=== PATIENT | female | born 1990 | race Caucasian/White ===

== ENCOUNTER 2020-09-07 03:46 | Outpatient (CLI) | payer BC, SELFPAY ==
[2020-09-07 17:45] LABS: SARS-CoV-2 RNA PCR Negative
== END 2020-09-07 03:47 | disposition home or self-care (01) ==
LOC: ANHCOVIDDT 03:46
PROVIDERS: PCP Physician Assistant; Visit Provider Internal Medicine Critical Care Medicine
DX: Z01.812 Encounter for preprocedural laboratory examination (principal); Z20.828 Contact with and (suspected) exposure to other viral communicable diseases
CPT/HCPCS: 87635; C9803; U0003

== ENCOUNTER 2020-09-10 08:02 | Outpatient (CLI) | payer BC, SELFPAY ==
--- NOTE | 2020-10-09 12:03 | WPDSLEEPSTUD ---
Sleep Study Date of Study: 09/10/20 Ordering Provider: Braulio Mcfadden DO Interpreting Physician: Halle Avina MD Sleep Study Type: Polysomnogram Height: 1.65 m Weight: 63.049 kg Body Mass Index: 23.1 [place]: 14 Reason for Sleep Study Hypersomnia Sleep History Guerda Fair is a 30 yo female who has had decreased energy for 10 or 11 years. She has a history of low B12 and iron levels. She has been getting injections. She requires napping in the daytime or she can't keep herself awake for more than 14 hours. There is a family history with her father having sleep apnea recently put on BiPAP. She has had chiropractic adjustments to help with joint and nerve pain. She rarely snores, rarely awakens at night with belching heartburn or coughing, rarely awakens from sleep feeling short of breath. She occasionally has trouble sleeping with a cold. She rarely wakes up gasping for breath at night, almost never has breathing problems at night reported to her by others. She rarely sweats excessively at night. She frequently notices her heart pounding or beating irregularly at night. She frequently falls asleep during the day, rarely involuntarily, never while driving. She does not fall asleep during physical effort. She rarely has loss of muscle tone with strong emotion. She occasionally has daytime difficulty is due to excessive sleepiness. Her job is a junior high school teacher. She does not feel paralyzed on waking or falling asleep. She occasionally has vivid dreamlike scenes upon awakening or falling asleep. She is not afraid to go to sleep. She occasionally has nightmares. She clinically remembers her dreams. She frequently has racing thoughts. She occasionally feels sad or depressed. She frequently has anxiety and muscular tension. She occasionally notices parts of her body jerking, occasionally kicks at night, occasionally has crawling and aching feelings in her legs and leg pain during the night. She occasionally has morning jaw pain. She rarely grinds her teeth at night. She occasionally is bothered by pain during the day, rarely is awakened by pain at night, rarely wakes up feeling stiff in the morning, with sore achy muscles or pain in the neck and spine. She has dizziness, stomach problems, fatigue, insomnia, poor appetite and frequent headaches. Normal bedtime is 9:15 p.m. taking 10-15 minutes fall asleep typically waking 3 or 4 times at night for 5-10 minutes. While awake, she will check the time, use the bathroom if needed, rollover and try to return to sleep. She wakes up in the morning at 5:20 a.m.. On the weekends she goes to bed later 10:00 p.m. and wakes at 6:30 a.m.. She estimates 7 8 hours of sleep at night. She changes her social plans at times in order to have a nap. she does take naps. A short nap is not refreshing. Most the time she feels good in the morning until 2:00 p.m. and then she becomes extremely drowsy. Habits: Never smoked tobacco. Caffeine 1 or 2 drinks per day. No alcohol or recreational drugs. [facility] Past Medical History Medical History (Updated 10/09/20 @ 12:49 by Halle Avina MD) Depression with anxiety Hypersomnolence TMJ disease Surgery 2003 Family History Family History Mother Family history of thyroid disease Hypertension Sibling Family history of migraine headaches Father Hypertension Family history of hemochromatosis Obstructive sleep apnea treated with BiPAP Social History Social History Smoking status: Never smoker Second hand tobacco smoke exposure: No Alcohol intake: current Drinks per week: 1 Substance use: never Medications Home Medications Medication Instructions Recorded Confirmed Type fluticasone propionate 50 2 spray NASAL DAILY 10/01/19 08/13/20 History mcg/actuation nasal spray,suspension levonorges
[2020-10-09 13:18] VITALS: BMI 23.1
== END 2020-09-10 08:03 | disposition home or self-care (01) ==
LOC: ANHCSM 08:04
PROVIDERS: PCP Physician Assistant; Visit Provider Internal Medicine
DX: G47.10 Hypersomnia, unspecified (principal); R53.83 Other fatigue
CPT/HCPCS: 95810

== ENCOUNTER 2022-03-06 10:46 | Outpatient (CLI) | payer BC, SELFPAY ==
[2022-03-06 13:33] LABS: Free T4 Free Thyroxine 0.91 ng/mL (0.78-2.19)
[2022-03-06 13:47] LABS: Total Triiodothyronine (T3) 1.17 NG/ML (0.97-1.69)
[2022-03-09 05:56] LABS: Thyroid Peroxidase Antibodies 2701 IU/mL (<9)
[2022-03-09 08:22] LABS: Triiodothyronine T3 Free 3.5 pg/mL (2.3-4.2)
== END 2022-03-06 10:47 | disposition home or self-care (01) ==
LOC: ANHWCLAB 10:48
PROVIDERS: PCP Internal Medicine; Visit Provider Internal Medicine Endocrinology, Diabetes & Metabolism
DX: E04.9 Nontoxic goiter, unspecified (principal); E03.8 Other specified hypothyroidism
CPT/HCPCS: 36415; 84439; 84443; 84480; 84481; 86376

== ENCOUNTER 2022-04-22 08:53 | Outpatient (CLI) | payer BC, SELFPAY ==
[2022-04-22 13:14] LABS: Free T4 Free Thyroxine 1.13 ng/mL (0.78-2.19)
[2022-04-25 06:21] LABS: Triiodothyronine T3 Free 3.4 pg/mL (2.3-4.2)
== END 2022-04-22 08:54 | disposition home or self-care (01) ==
PROVIDERS: PCP Internal Medicine; Visit Provider Internal Medicine Endocrinology, Diabetes & Metabolism
DX: E04.9 Nontoxic goiter, unspecified (principal); E03.8 Other specified hypothyroidism
CPT/HCPCS: 36415; 84439; 84443; 84481

== ENCOUNTER 2022-05-09 10:39 | Outpatient (CLI) | payer BC, SELFPAY ==
[2022-05-09 11:30] LABS: Hematocrit 41.4 % (37.0-47.0); Mean Corpuscular HGB Conc 33.8 g/dl (32-36); Mean Corpuscular Volume 88.7 fl (80-100); Mean Platelet Volume 10.6 fl (7.4-10.4); Platelet Count Result 174 k/mm3 (150-375); Red Blood Count 4.67 M/mm3 (4.2-5.4); Red Cell Distribution Width 11.9 % (11.5-14.5); White Blood Count 5.4 K/mm3 (4.5-10.0)
[2022-05-09 13:16] LABS: Iron 105 ug/dL (37-170)
[2022-05-09 13:19] LABS: Alanine Aminotransferase 20 U/L (6-35); Albumin Level 4.8 g/dL (3.5-5.1); Alkaline Phosphatase 75 U/L (38-126); Anion Gap 9 mmol/L (8-16); Aspartate Amino Transferase 23 U/L (14-36); Bilirubin,Total 0.4 mg/dL (0.2-1.3); Blood Urea Nitrogen 11 mg/dL (7-17); Calcium 8.9 mg/dL (8.4-10.2); Carbon Dioxide 24 mmol/L (22-30); Chloride 108 mmol/L (98-107); Estimated Glomerular Filt Rate > 60; Glucose 95 mg/dL (65-110); Sodium 141 mmol/L (137-145)
[2022-05-09 13:26] LABS: Percent Iron Saturation 36 % (20-50)
== END 2022-05-09 10:40 | disposition home or self-care (01) ==
PROVIDERS: PCP Internal Medicine; Visit Provider Internal Medicine Hematology & Oncology
DX: E83.110 Hereditary hemochromatosis (principal)
CPT/HCPCS: 36415; 80053; 82728; 83540; 83550; 85027

== ENCOUNTER 2022-06-05 08:52 | Outpatient (CLI) | payer BC, SELFPAY ==
[2022-06-05 13:57] LABS: Free T4 Free Thyroxine 1.18 ng/mL (0.78-2.19)
== END 2022-06-05 08:53 | disposition home or self-care (01) ==
LOC: ANHWCLAB 08:56
PROVIDERS: PCP Internal Medicine; Visit Provider Internal Medicine Endocrinology, Diabetes & Metabolism
DX: E03.8 Other specified hypothyroidism (principal); R53.83 Other fatigue; R76.8 Other specified abnormal immunological findings in serum
CPT/HCPCS: 36415; 84439; 84443

== ENCOUNTER 2023-04-27 00:07 | Day surgery (SDC) | payer BC, SELFPAY ==
[2023-04-23 08:13] VITALS: BMI 25.7
--- NOTE | 2023-04-23 08:34 | SUR.PREOP ---
Report to the Outpatient Waiting Room, entrance under the green pavilion located off [facility], at time 0600 on date 04/27/23. Planned Procedure Time: 0730. Time changes happen often and if your time is changed the preop area will call you the afternoon before. - You and your visitor will be asked to self-screen and do not enter if you have any COVID symptoms. - A mask is optional within the hospital at this time. Patients may have clear liquids (water, carbonated beverages, clear teas, apple juice) until 3 hours prior to surgery with a maximum of 20 ounces. - No food from midnight until time of surgery - Infants may have breast milk until 4 hours before surgery, formula 6 hours prior to surgery. - Children will be allowed to drink immediately following surgery. If applicable, please bring a bottle or sippy cup to assist with drinking. Juice, water, soda, and popsicles are readily available. For infants on formula, please bring formula the day of surgery. Pacifiers are allowed. Take the following medications with a SIP of water the morning of surgery: LEVOTHYROXINE DO NOT STOP ANY OF YOUR OTHER PRESCRIPTION MEDICATIONS PRIOR TO SURGERY ?EXCEPT THE FOLLOWING Medications to discontinue per physician N/A Date to take last dose STOP ALL VITAMINS AND SUPPLIMENTS 3 DAYS PRIOR Please no make-up, nail georgian, hairspray, perfume, deodorant, or body powder the day of surgery. No jewelry (including any body piercings) or valuables the day of surgery, leave them at home. Please take a shower or bath the night before, or the morning of, surgery with an antibacterial soap. Wear comfortable, loose fitting clothing. Children are encouraged to wear pajamas. - Jewelry must be removed prior to entering the operating room. Rings and piercings that are not removed may be cut off. - The hospital will not accept responsibility for valuables. - Please leave all valuables, including medications, at home the day of surgery. If you are going home after surgery, a licensed vending route driver must drive you home. - NO public transportation without another adult if you receive anesthesia. - We recommend that an adult stay with you for 24 hours following discharge. - We also recommend that you do not drive, make important decision, drink alcoholic beverages, or take any drugs that were not prescribed by your health care provider for at least 24 hours after your discharge time. For Pediatric surgeries, we recommend two adults accompany the child home. Follow any additional instructions given to you from your surgeon. If you or anyone in your household have experienced Covid symptoms in the past week, please notify your surgeon or the nurse liaison at the phone number below for possible testing. Telephone instructions given to LUCIA LEE and asked if any additional questions and then verbalized understanding. Patient advised to call surgeon office or pre surgery nurse liaison [phone] if any additional questions.
--- NOTE | 2023-04-26 18:57 | PM.IMHP ---
H&P: HPI History of Present Illness Date/Time: 04/26/23 18:57 Chief Complaint: sterilization and LEEP Narrative: Guerda is a 32yo P1011, LMP 12/31/22 who presents for scheduled surgery. She had a colpo 03/2021 due to LGSIL/HPV + pap, which showed ANTON 1. The prior year she also had LGSIL/HPV + pap, followed by colpo showing ANTON 1.?Her pap 03/05/23 also shows ASCUS/HPV + and is tired of colpos. Due to persistent ANTON 1; wants to proceed with LEEP. She is on Slynd and having some BTB/spotting for the last couple months. But she was finally diagnosed with hypothyroidism and hereditary hemochromotosis. She's following with endo. She is sexually active. No breast issues. She is wanting to stop OCPs and no longer desires future children; wants to proceed with tubal-- also has thyroid issues and thinks stopping may help stable her levels. Review of Systems Constitutional: Constitutional: Denies chills, Denies fever(s) and Denies headache(s) Eyes: Eyes: Denies change in vision ENT: Denies dizziness and Denies headache(s) Cardiovascular: Cardiovascular: Denies chest pain and Denies dyspnea Respiratory: Respiratory: Denies cough and Denies dyspnea Gastrointestinal: Gastrointestinal: Denies abdominal pain and Denies change in stool character Genitourinary: Genitourinary: Denies abnormal menses, Denies pelvic pain, Denies vaginal discharge, Denies vaginal odor and Denies vaginal pruritus Neurologic: Denies dizziness and Denies headache(s) Psychiatric: Psychiatric: Denies anxiety and Denies depression [facility] Past Medical History Medical History Abnormal uterine bleeding (AUB) Allergies Anemia Anti-TPO antibodies present B12 deficiency Depression with anxiety Headache, migraine Hemochromatosis carrier Hypersomnolence Hypothyroidism (acquired) Iron overload Lymphadenitis Migraine without status migrainosus Overweight (BMI 25.0-29.9) PLMD (periodic limb movement disorder) Subclinical hypothyroidism Thyromegaly TMJ disease Surgery 2004 Surgical History Surgical History History of colposcopy 03/28/2021- biopsies show ANTON 1 x2, HPV 03/08/2020 - ANTON 1 History of gynecological procedure mirena iud insertion - 01/13/2019 mirena iud removal - 03/07/2021 History of mandibular surgery History of orthopedic surgery jaw surgery 02/07/2004 Family History Family History Mother Family history of thyroid disease Hypertension Sibling Family history of migraine headaches Father Hypertension Family history of hemochromatosis Obstructive sleep apnea treated with BiPAP Other Alcoholism Anemia Depression Diabetes mellitus Heart disease Social History Social History Smoking status: Never smoker Second hand tobacco smoke exposure: No Alcohol intake: never Substance use: never Substance use type: does not use Lack of Transportation: No Lack of Food: Never True Current Housing: I Have Housing Concerned About Future Housing: No Difficulty Paying Gas/Electric Bills: No Difficulty Paying for Meds: No Currently Unemployed: No Education: Bachelor's Degree Difficulty w/ Childcare or Family Care: No Living arrangements: with family Additional living arrangements comments: Occupation/Education: occupation Additional occupation/education comments: teacher Gender identity (if verbalized by the patient): Female Sexual Orientation (if Verbalized by the Patient): Straight or Heterosexual Spiritual care concerns: No Meds Home Medications and Allergies Home Medications Medication Instructions Recorded Confirmed Type fluticasone propionate 50 2 spray intranasal PRN PRN Allergy 10/01/19 04/23/23 History mcg/actuation nasal Symptoms spray,suspension (Fl
[2023-04-27] VITALS (8 sets, daily range): BP systolic 102–120; BP diastolic 63–74; PULSE 61–100; RESP 10–16; TEMP 36.2–36.6; O2SAT 99–100
--- NOTE | 2023-04-27 06:42 | WPDANESEPPF ---
Anes - Initial Pre Proc Eval Procedure: Operation Date: 04/27/23 07:30 Proposed Procedures p Bilateral Laparoscopic Salpingectomy, - Rajani Wilson MD s Loop Electrical Excision Procedure - Rajani Wilson MD Date/Time: 04/27/23 06:42 Surgeon: Rajani Wilson MD Pre Op Diagnosis: desires sterilization, cervical dysplasia Patient Data Age: 32 Gender: F Height: 1.65 m Weight: 70.31 kg Allergies Allergy/AdvReac Type Severity Reaction Status Date / Time No Known Allergies Allergy Mild Verified 04/27/23 06:34 Home Medications Medication Instructions Recorded Confirmed Type fluticasone propionate 50 2 spray intranasal PRN PRN Allergy 10/01/19 04/23/23 History mcg/actuation nasal Symptoms spray,suspension (Flonase Allergy Relief) topiramate 25 mg tablet (Topamax) 25 mg PO DAILY #90 tabs 11/14/22 04/23/23 Rx levothyroxine 100 mcg tablet 100 mcg PO DAILY 3 months #90 tabs 03/09/23 04/23/23 Rx Patient hx anesthesia problems: post op nausea/vomiting Family hx anesthesia problems: other (anxiety) Results Review: All pre-operative results and documents have been reviewed as part of the pre-operative evaluation. [facility] Past Medical History Medical History Abnormal uterine bleeding (AUB) Allergies Anemia Anti-TPO antibodies present B12 deficiency Depression with anxiety Headache, migraine Hemochromatosis carrier Hypersomnolence Hypothyroidism (acquired) Iron overload Lymphadenitis Migraine without status migrainosus Overweight (BMI 25.0-29.9) PLMD (periodic limb movement disorder) Subclinical hypothyroidism Thyromegaly TMJ disease Surgery 2003 Surgical History Surgical History History of colposcopy 03/28/2021- biopsies show ANTON 1 x2, HPV 03/08/2020 - ANTON 1 History of gynecological procedure mirena iud insertion - 01/13/2019 mirena iud removal - 03/07/2021 History of mandibular surgery History of orthopedic surgery jaw surgery 02/07/2004 Family History Family History Mother Family history of thyroid disease Hypertension Sibling Family history of migraine headaches Father Hypertension Family history of hemochromatosis Obstructive sleep apnea treated with BiPAP Other Alcoholism Anemia Depression Diabetes mellitus Heart disease Social History Social History Smoking status: Never smoker Second hand tobacco smoke exposure: No Alcohol intake: never Substance use: never Substance use type: does not use Lack of Transportation: No Lack of Food: Never True Current Housing: I Have Housing Concerned About Future Housing: No Difficulty Paying Gas/Electric Bills: No Difficulty Paying for Meds: No Currently Unemployed: No Education: Bachelor's Degree Difficulty w/ Childcare or Family Care: No Living arrangements: with family Additional living arrangements comments: Occupation/Education: occupation Additional occupation/education comments: teacher Gender identity (if verbalized by the patient): Female Sexual Orientation (if Verbalized by the Patient): Straight or Heterosexual Spiritual care concerns: No Anes - Eval Final PreProcedure Day of Procedure 04/27/23 06:42 Patient weight: normal Heart: regular rate and rhythm Lungs: clear to auscultation Airway: Mallampati scale class II Neurological: alert and oriented Last oral intake: >/= 8 hours ASA classification: II Emergent: no Anesthetic plan: proceed Anesthesia type and monitoring: general ETT and standard monitoring Results Review: All pre-operative results and documents have been reviewed as part of the pre-operative evaluation. Informed Consent: The patient's anesthetic plan and its attendant risks and benefits were di
[2023-04-27] MEDS: ACETAMINOPHEN 500 MG TABLET 1000 MG PO (06:49)
[2023-04-27] MEDS: LACTATED RINGERS 1,000 ML 30 ML IV CONT ×2 (06:49→08:48)
[2023-04-27] MEDS: SCOPOLAMINE 1.5 MG PATCH TRANSDERM (06:55)
--- NOTE | 2023-04-27 07:05 | WPDHPUPDATE1 ---
History and Physical Update Update Date/Time: 04/27/23 07:05 History and Physical has been reviewed, including an updated exam of the patient. There are NO changes in the patient's condition. Risks, benefits, and alternatives have been discussed and questions answered. Patient agrees to proceed with bilateral laparoscopic salpingectomy, LEEP, ECC and top hat.
[2023-04-27] MEDS: BUPIVACAINE/EPINEPHRINE 0.5% 50 ML VIAL INFILTRATE (08:09)
--- NOTE | 2023-04-27 08:26 | W.PM.PROC2 ---
Procedure Note - Detailed Date of Procedure 04/27/23 Pre-op Diagnosis 1. Desires sterilization 2. Persistent cervical dysplasia (ANTON 1) Post-op Diagnosis Same Procedure Performed 1. Laparoscopic bilateral salpingectomy 2. Leep with top [facility] Surgeon Rajani Wilson MD Anesthesia General and Local (28cc of 0.25% Marcaine with epi ) Findings Normal uterus and bilateral ovaries. Fallopian tubes with small paratubal cysts. Good hemostasis at end of case. Cervix with decreased uptake at 10-12o'clock. Good hemostasis at end of case. Monsel's solution applied at end of case. Description of Procedure Guerda was taken to the operating room where she was placed under general endotracheal anesthesia without complications. She was then prepped and draped in the usual sterile fashion in the dorsal lithotomy position with her legs in low Cameron stirrups and her arms tucked at her side with a strap over her chest. A time-out was performed and no preoperative antibiotics were indicated. My attention was turned down below where her bladder was drained via straight catheterization. A sponge on a stick was placed within the vagina. My gloves were changed and my attention was turned to her abdomen. An umbilical incision was made, and a 5 mm trocar was placed under direct visualization without complications. Once intra-abdominal placement was confirmed the abdomen was insufflated with carbon dioxide gas. She was then placed in Trendelenburg and two additional 5 mm ports were placed in the left and right lower quadrants under direct visualization without complications. The above findings were noted. The left fallopian tube was then elevated and the mesosalpinx was serially clamped, coagulated, transected using the LigaSure device until the proximal end of the fallopian tube was reached. The proximal end of the fallopian tube was cross clamped, coagulated and transected. The tube was then removed from the abdomen. The same procedure was then performed on the right side without any complications. Good hemostasis was noted. All instruments were removed from the abdomen. The insufflation was released and the trocars were removed. The 3 laparoscopic incision sites were reapproximated using 4-0 Monocryl and covered with Dermabond. The incisions were then infiltrated using 0.25% Marcaine, 10cc was used. The spoge on a stick was removed from the vagina. A coated speculum attached to suction was then placed within the vagina, where the cervix was easily identified. Lugol?s solution was then applied to the cervix. No uptake was noted at 10-12 o'clock. The cervix was then injected with 0.25% Marcaine with epinephrine (18cc were used). The LEEP was then obtained in a single swipe from the patient?s left to right. The LEEP was removed and a silk stitch was placed at 12:00 p.m. to orient the tissue for pathology. A top-hat was then obtained in the same manner. The LEEP bed was then cauterized using the roller ball. Monsel?s solution was then placed in the LEEP bed. Good hemostasis was noted. Sponge, lap, instrument, and needle counts were correct at the end of the procedure. Patient was awoken from general anesthesia and taken to recovery with plans of same-day discharge home. Estimated Blood Loss 5 IV Fluids 700 Urine Output 50 Packing No Pathology Yes (left and right tubes sent separately; LEEP with stitch at 12o'clock; top hat) Complications No immediate complications Condition Stable Disposition Same day [facility] Billing Surgery - Charge Forward: Surgery Billing
[2023-04-27] MEDS: fentaNYL CITRATE INJ (*CRX) 100 MCG/2 ML VIAL 25 MCG IV PUSH ×3 (08:48→08:55)
[2023-04-27] MEDS: oxyCODONE HCL (*CRX) 5 MG TAB IR PO (10:14)
== END 2023-04-27 10:45 | disposition home or self-care (01) ==
PROVIDERS: PCP Internal Medicine; Visit Provider Obstetrics & Gynecology
PROC: (CPT 49320; principal; 2023-04-27 07:30)
PROC: 0UBC7ZZ Excision of Cervix, Via Natural or Artificial Opening (ICD-10-PCS; CPT 57522; 2023-04-27 07:30)
DX: Z30.2 Encounter for sterilization (principal); N87.0 Mild cervical dysplasia; B97.7 Papillomavirus as the cause of diseases classified elsewhere; N83.8 Other noninflammatory disorders of ovary, fallopian tube and broad ligament; E03.9 Hypothyroidism, unspecified; E83.110 Hereditary hemochromatosis
CPT/HCPCS: 57522; 58661; 88302; 88307; 88342; A9270; J1100; J2250; J2405; J2704; J2710; J3010; J7030; J7120

== ENCOUNTER 2024-12-02 09:20 | Outpatient (CLI) | payer BC, SELFPAY ==
--- NOTE | 2024-12-02 09:23 | EST_ITS ---
Patient Info Name: Guerda Fair Age: 34 years : 1990 Gender: Female Ht: 65 in Wt: 155 lbs BSA: 1.81 m2 Exam Date: 12/02/2024 9:46 AM Exam Location: Echo Lab Patient Status: Outpatient Admit Date: 12/02/2024 Staff Ordering Physician: Abhijit Oconnor DO Attending Provider: Abhijit Oconnor DO Exercise Technologist: Roro Perry CT Exercise Physician: Jv Guzman DO Exam Type: CA stress test treadmill Study Info A treadmill exercise stress test was performed. Summary 1. 1. Negative Antoine exercise stress test for ischemic ST changes by ECG criteria as she had intermittent ST segment depressions with exercise that resolved at peak exercise. 2. 2. Good functional capacity, achieving 10 METs of workload. 3. 3. Appropriate HR response to exercise. 4. 4. Appropriate HR recovery at 1 minute post exercise. 5. 5. No imaging with stress testing. 6. 6. Patient informed of the above results. Protocol: Antoine Stress ECG Details Stage: REST Duration (min): 0 min : 53 sec Speed (mph): 0.0 Grade (%): 0 HR (bpm): 62 SBP (mmHg): 112 DBP (mmHg): 76 METS: --- Stage: REST Duration (min): 1 min : 3 sec Speed (mph): 0.0 Grade (%): 0 HR (bpm): 63 SBP (mmHg): 112 DBP (mmHg): 76 METS: --- Stage: STAGE 1 Duration (min): 1 min : 0 sec Speed (mph): 1.7 Grade (%): 10 HR (bpm): 97 SBP (mmHg): 112 DBP (mmHg): 76 METS: --- Stage: STAGE 1 Duration (min): 2 min : 0 sec Speed (mph): 1.7 Grade (%): 10 HR (bpm): 114 SBP (mmHg): 112 DBP (mmHg): 76 METS: --- Stage: STAGE 1 Duration (min): 3 min : 0 sec Speed (mph): 1.7 Grade (%): 10 HR (bpm): 112 SBP (mmHg): 136 DBP (mmHg): 66 METS: --- Stage: STAGE 2 Duration (min): 1 min : 0 sec Speed (mph): 2.5 Grade (%): 12 HR (bpm): 127 SBP (mmHg): 136 DBP (mmHg): 66 METS: --- Stage: STAGE 2 Duration (min): 2 min : 0 sec Speed (mph): 2.5 Grade (%): 12 HR (bpm): 154 SBP (mmHg): 135 DBP (mmHg): 73 METS: --- Stage: STAGE 2 Duration (min): 3 min : 0 sec Speed (mph): 2.5 Grade (%): 12 HR (bpm): 158 SBP (mmHg): 135 DBP (mmHg): 73 METS: --- Stage: STAGE 3 Duration (min): 1 min : 0 sec Speed (mph): 3.4 Grade (%): 14 HR (bpm): 167 SBP (mmHg): 136 DBP (mmHg): 71 METS: --- Stage: STAGE 3 Duration (min): 1 min : 46 sec Speed (mph): 3.4 Grade (%): 14 HR (bpm): 174 SBP (mmHg): 136 DBP (mmHg): 71 METS: --- Stage: RECOVERY Duration (min): 0 min : 13 sec Speed (mph): 0.0 Grade (%): 0 HR (bpm): 174 SBP (mmHg): 136 DBP (mmHg): 71 METS: --- Stage: RECOVERY Duration (min): 1 min : 13 sec Speed (mph): 0.0 Grade (%): 0 HR (bpm): 140 SBP (mmHg): 136 DBP (mmHg): 71 METS: --- Stage: RECOVERY Duration (min): 2 min : 13 sec Speed (mph): 0.0 Grade (%): 0 HR (bpm): 116 SBP (mmHg): 136 DBP (mmHg): 71 METS: --- Stage: RECOVERY Duration (min): 2 min : 47 sec Speed (mph): 0.0 Grade (%): 0 HR (bpm): 107 SBP (mmHg): 144 DBP (mmHg): 63 METS: --- Rest HR: 63 bpm Peak HR: 175 bpm Rest Sys BP: 112 mmHg Peak Sys BP: 144 mmHg Max Pred HR: 184 bpm % Max Pred HR: 95 % Target HR: 156 bpm Max RPP: 25,200 bpm*mmHg [place] Score: -6 Termination Reason: Reached target heart rate or workload Cardiac Symptoms: Shortness of breath Max ST Seg Deviation: -2.80 mm Total Time: 7 min : 46 sec Rest Danielson BP: 76 mmHg Peak Danielson BP: 63 mmHg Angina Score: None Total METS: 10.1 Resting ECG Sinus rhythm. Stress ECG Intermittent 1-[address] depression in V3-V6 and inferior leads and resolved at peak exercise. Arrhythmias None. Report Signatures
== END 2024-12-02 09:21 | disposition home or self-care (01) ==
PROVIDERS: PCP Internal Medicine; Visit Provider Internal Medicine
DX: R06.09 Other forms of dyspnea (principal)
CPT/HCPCS: 93017